=== PATIENT | male | born 1980 | race Caucasian/White ===

== ENCOUNTER 2019-12-02 20:33 | Emergency (ER) | payer MEDICAID, SELFPAY ==
--- NOTE | 2019-12-02 20:52 | PC.NURSE ---
EMS REPORT PATIENT RECENTLY DISCHARGED FROM [facility] DUE TO SPINAL INFECTION, WAS TREATED WITH IV ANTIBIOTICS, PATIENT C/O 9/10 BACK PAIN AND STATES HE IS UNABLE TO WALK, + CSM/PULSES TO LOWER EXTREMITIES, VITALS BY EMS BP 128/70, HR 100, 98% R/A, RR 20.
[2019-12-02 21:34] VITALS: BP 128/70; BP 97/63; PULSE 100; PULSE 103; RESP 20; TEMP 36.3; O2SAT 96; O2SAT 98; BMI 30.7
--- NOTE | 2019-12-02 21:49 | PC.NURSE ---
BP PATIENTS BP ON LT ARM WAS 97/63, BP ON RIGHT ARM WAS 89/72
--- NOTE | 2019-12-02 22:38 | ED_ITS ---
HPI - Back Pain/Injury General Chief Complaint: Back Pain/Injury Stated Complaint: BACK PAIN Time Seen by Provider: 12/02/19 22:38 Source: patient Mode of arrival: EMS History of Present Illness HPI Narrative: this is a 39-year-old male who is brought in by EMS after reporting inability to walk and significant numbness to bilateral lower extremities which is not new. This patient has been undergoing IV antibiotic therapy for bilateral psoas abscesses and signed out AMA this morning from [facility]. On review of records obtained, this is not the 1st time that patient has done this and he endorses that this is due to inadequate pain control. Otherwise, he denies any fevers, chills, shortness of breath, chest pain / palpitations. His primary concern is that he has bilateral lower extremity numbness and weakness to the point that he is unable to walk. Patient does endorse that he last used heroin this morning at approximately 11:00 a.m. and states that it was 1 bag. Related Data Allergies Allergy/AdvReac Type Severity Reaction Status Date / Time pregabalin [From Lyrica] Allergy Mild HIVES Unverified 11/13/19 17:40 NSAIDS (Non-Steroidal AdvReac Mild STOMACH Unverified 11/13/19 17:40 Anti-Inflamma UPSET [NSAIDS (NON-STEROIDAL ANTI-INFLAMMA] From TORADOL Allergy Unknown RASH Uncoded 11/13/19 17:40 Ketorolac Tromethamine Allergy Unknown hives Uncoded 05/12/11 00:00 Lyrica Allergy Unknown Uncoded 05/12/11 00:00 Tramadol HCl Allergy Unknown stomach Uncoded 05/12/11 00:00 upset Review of Systems Review of Systems: Pertinent positives and negatives as stated in the HPI. 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 hand Kidney stone Opiate abuse, continuous Stomach ulcer Surgical abdomen Surgical History H/O rotator cuff surgery History of back surgery Social History Social History Alcohol intake: never Smoking Status: Current every day smoker Smoked in Last 30 Days: Yes Use of substances other than those prescribed or required for medical reasons: Yes Substance Use Type: Heroin and IV Drugs Advance Directives: No Advance Directives Information Provided: No Physical Exam Vital Signs and I&O and Narrative: Vital Signs and I&O: Vital Signs Temp 97.3 F 12/02/19 21:34 Pulse 94 12/02/19 23:04 Resp 12 12/02/19 23:04 BP 95/66 12/02/19 23:04 Pulse Ox 99 12/02/19 23:04 Intake & Output 12/02/19 12/02/19 12/03/19 06:59 18:59 06:59 Weight 99.79 kg Body Mass Index 30.7 VITAL SIGNS: Reviewed. GENERAL: Well developed, well nourished, in no acute distress. HEAD: Normocephalic/atraumatic, Posterior oropharynx was without edema, erythema or exudate. EYES: PERRLA, Pupils <>, EOMI intact without pain, no nystagmus/pallor/icterus noted EARS: Ext canals without abnormality, TMs non-bulging and non-erythematous NOSE: Nares patent bilateral OROPHARYNX: no oral lesions noted, posterior pharynx clear and non-erythematous without noted tonsillar enlargement/erythema/exudates NECK: Supple, no adenopathy LUNGS: Normal breath sounds. No adventitious sounds or accessory muscle use. SpO2<> CARDIOVASCULAR: Regular rate and rhythm without noted murmurs, no JVD or lower extremity edema. ABDOMEN: Soft, non-tender, non-distended with bowel sounds. No rigidity. No guarding. No palpable masses or hernias noted MUSCULOSKELETAL: No tenderness, deformities, or effusions noted on gross inspection. EXTREMITIES: No cyanosis, clubbing or edema. SKIN: Inspection of the skin reveals no rashes, ulcerations, jaundice, pallor, or petechiae. NEUROLOGIC: Alert and oriented x 4. 3/5 decrease in strength with significantly abnormal dorsiflexion/plantar flexion, sensation is significantly decreased although inconsistent with dermatomal pattern. Course Course Course Narrative: This is a 39-year-old male who is well known to both [facility] and [facility] for attempts to treat this patient for epidural abscesses. [facility] was contacted and will accept the patient under the care Dr Clifford. Consult was placed with [facility] Inpatient Hospitalist: I spoke with RETAIL SHIFT MANAGER Kadi @ 0025 and she will be discussing with her attending regarding transfer. Discharge Plan Discharge Clinical Impression: Abscess Patient Disposition: [facility]
[2019-12-02 23:04] VITALS: BP 95/66; PULSE 94; RESP 12; O2SAT 99
--- NOTE | 2019-12-02 23:27 | PC.NURSE ---
[facility] PT TX LINE CALLED [phone] @ DR WELLS REQUEST @ THIS TIME MAJO ANSWERS TAKES PT INFO, CALL BACK NUMBER AND ASKS TO SPEAK WITH DR RUSSELL WELLS TAKES CALL SHORTLY AFTER
--- NOTE | 2019-12-03 00:23 | PC.NURSE ---
RETURN CALL FROM [facility] OF THE [facility] PT TX LINE @ THIS TIME ASKS TO SPEAK WITH DR RUSSELL WELLS TAKES OVER CALL RIGHT AWAY
--- NOTE | 2019-12-03 00:35 | PC.NURSE ---
RETURN CALL FROM [facility] OF THE [facility] PT TX LINE @ THIS TIME ASKS TO SPEAK WITH DR RUSSELL WELLS TAKES OVER CALL RIGHT AWAY PER DR ALVAREZ PT ACCEPTED BY DR PANG, EXPECT CALL BACK FROM [facility] WITH ROOM ASSIGNMENT WHEN AVAILABLE
--- NOTE | 2019-12-03 00:43 | PC.NURSE ---
RETURN CALL FROM [facility] PT TX LINE @ THIS TIME GIVES ROOM ASSIGNMENT OF: EATON [address] BED 31B RN TO RN SHOULD BE CALLED TO: [phone] REQUEST FOR FAX OF FACE SHEET TO: [phone]
[2019-12-03 01:21] VITALS: BP 107/66; PULSE 98; RESP 12; O2SAT 99
[2019-12-03] MEDS: oxyCODONE HCl Immed Release 5 MG TABLET 10 MG PO (02:26)
== END 2019-12-03 02:45 | disposition short-term general hospital (02) ==
PROVIDERS: Emergency Provider Student in an Organized Health Care Education/Training Program; PCP Nurse Practitioner Family
DX: L02.212 Cutaneous abscess of back [any part, except buttock and flank] (principal); M54.5 Low back pain; R20.0 Anesthesia of skin; R26.2 Difficulty in walking, not elsewhere classified; F17.200 Nicotine dependence, unspecified, uncomplicated; Z71.6 Tobacco abuse counseling; Z79.899 Other long term (current) drug therapy
CPT/HCPCS: 99284; 99285

== ENCOUNTER 2019-12-08 00:20 | Emergency (ER) | payer MEDICAID, SELFPAY ==
[2019-12-08 00:26] VITALS: BP 113/69; PULSE 90; RESP 16; TEMP 36.5; O2SAT 98
[2019-12-08 00:34] VITALS: BP 113/69; BP 132/92; PULSE 90; PULSE 98; RESP 16; TEMP 36.5; O2SAT 97; O2SAT 98; BMI 28.5
--- NOTE | 2019-12-08 00:45 | ED_ITS ---
HPI - Back Pain/Injury General Chief Complaint: Weakness Stated Complaint: BACK PAIN Time Seen by Provider: 12/08/19 00:35 History of Present Illness HPI Narrative: patient has a history of chronic back pain. History of multiple surgery in the past. History of heroin abuse. Patient's surgery was over 10 years ago patient has been having pain on and off since. Patient has an addiction to heroin. Claims he last use over 24 hours ago. Patient was at [facility] awaiting a rehab bed when he got annoyed. Decided to come to [facility] for further help. Patient denies any suicidal homicidal ideation. Patient wants additional pain medication for his back pain. No cough ing or congestion or upper respiratory symptoms that is new. Patient claims the pain is 10/10. patient denies any bowel urinary issue that is new. Patient denies any new focal weakness. No fever. No focal pain in the back. MD elicited complaint: back pain Onset (ago): year(s) Related Data Allergies Allergy/AdvReac Type Severity Reaction Status Date / Time pregabalin [From Lyrica] Allergy Mild HIVES Unverified 11/13/19 17:40 NSAIDS (Non-Steroidal AdvReac Mild STOMACH Unverified 11/13/19 17:40 Anti-Inflamma UPSET [NSAIDS (NON-STEROIDAL ANTI-INFLAMMA] From TORADOL Allergy Unknown RASH Uncoded 11/13/19 17:40 Ketorolac Tromethamine Allergy Unknown hives Uncoded 05/12/11 00:00 Lyrica Allergy Unknown Uncoded 05/12/11 00:00 Tramadol HCl Allergy Unknown stomach Uncoded 05/12/11 00:00 upset Review of Systems Review of Systems: Constitutional: No Weight loss, No Fever, No Chills, No Night Sweats, No Fatigue, No Malaise ENT/Mouth: No Hearing loss, No Ear Pain, No Nasal Congestion, No Sinus Pain, No Hoarseness, No sore throat, No Rhinorrhea, No Swallowing Difficulty Eyes: No Eye Pain, No Swelling, No Redness, No Foreign Body, No Discharge, No Vision Changes Cardiovascular: No Chest Pain, No SOB, No Dyspnea on Exertion, No Orthopnea, No Edema, No Palpitations Respiratory: No Cough, No Sputum, No Wheezing, No Smoke Exposure, No Dyspnea Gastrointestinal: No Nausea, No Vomiting, No Diarrhea, No Constipation, No abdominal Pain, No Hematochezia, No Melena Genitourinary: no irregular bleeding, No Dysuria, No Urinary Frequency, No Hematuria, No Urinary Incontinence, No Urgency, No Flank Pain, No Urinary Flow Changes, No Hesitancy Musculoskeletal: No joint pain, No Myalgias, No Joint Swelling Skin: No Skin Lesions, No rash Neuro: No Weakness, Positive chronic weakness of bilateral lower extremity positive history of back pain. 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 Appearance: Alert. Oriented X3. No acute distress. Eyes: Pupils equal, round and reactive to light. ENT: Pharynx normal. Neck: Normal inspection. Neck supple. No lymph nodes noted. No crepitus CVS: Normal heart rate and rhythm. Pulses normal. Normal S1 and S2 Respiratory: No respiratory distress. Breath sounds normal. No Wheezing. No rales Abdomen: Soft and nontender. No rigidity. No distention. good BS x4 Skin: Multiple track alves noted Extremities: No lower extremity edema. Neurovascular intact to all extremities. No Lacerations. No Rash Neuro: Oriented X 3. No motor deficit. No sensory deficit. Moving all extermities. No slurred speech MDM - Back Pain/Injury MDM Narrative Medical decision making narrative: patient offered detox. At this time has no fever no chills. Given patient's long history of heroin abuse. Patient told that we cannot offer him any additional narcotics. Patient states understanding that somewhat annoyed wants to leave against medical advice. Patient understood the risk of leaving including continue pain. Continue addiction. Potential from addition. Patient left against medical advice Differential Diagnosis Differential diagnosis: Likely lumbar radiculopathy, sciatica and strain of lumbar region Discharge Plan Discharge Clinical Impression: Back pain Patient Disposition: Left Against Medical Advice Additional Instructions: Thank you for visiting the emergency department today. If your symptoms worsen or do not resolve completely please return to the emergency department immediately or call 911. if he have any questions please call your primary care physician Referrals: Physician,Unknown [Primary Care Provider] - 1 day Stand Alone Forms: Against Medical Advice
--- NOTE | 2019-12-08 01:04 | PC.NURSE ---
PT STATES HE IS GOING TO LEAVE AMA, WHEN RN & MD ATTEMPTED TO REDIRECT AND ASK PT WHAT PLAN WAS HE STATED YOU PEOPLE DONT GIVE A SHIT ANYWAY, ITS NOT YOUR PROBLEM
== END 2019-12-08 01:00 | disposition left against medical advice (07) ==
PROVIDERS: Emergency Provider Emergency Medicine Emergency Medical Services; PCP Nurse Practitioner Family
DX: M54.5 Low back pain (principal); F11.10 Opioid abuse, uncomplicated; F17.200 Nicotine dependence, unspecified, uncomplicated
CPT/HCPCS: 99283

== ENCOUNTER 2019-12-11 22:26 | Emergency (ER) | payer MEDICAID, SELFPAY ==
[2019-12-11 22:33] VITALS: BP 112/64; PULSE 94; RESP 16; TEMP 36.6; O2SAT 100; BMI 28.1
[2019-12-11 22:45] VITALS: BP 116/74; PULSE 88; RESP 16; O2SAT 100
--- NOTE | 2019-12-11 22:57 | ED_ITS ---
HPI - Back Pain/Injury General Chief Complaint: Back Pain/Injury Stated Complaint: BACK PAIN Time Seen by Provider: 12/11/19 22:57 Source: patient Mode of arrival: ambulatory Limitations: no limitations History of Present Illness HPI Narrative: Patient states that he was at [facility] for spinal infection but it sounds like he signed out AMA. Patient is an active IVDA MD elicited complaint: back pain Pertinent past history: prior back pain Onset (ago): week(s) Timing: constant Severity: mild Location: lumbar spine Associated symptoms: denies other symptoms Related Data Previous Rx's Medication Instructions Recorded sulfamethoxazole-trimethoprim 1 tab PO BID #60 tab 12/12/19 [Bactrim DS] Allergies Allergy/AdvReac Type Severity Reaction Status Date / Time pregabalin [From Lyrica] Allergy Mild HIVES Verified 12/11/19 23:25 NSAIDS (Non-Steroidal AdvReac Mild STOMACH Verified 12/11/19 23:25 Anti-Inflamma UPSET [NSAIDS (NON-STEROIDAL ANTI-INFLAMMA] From TORADOL Allergy Unknown RASH Uncoded 11/13/19 17:40 Ketorolac Tromethamine Allergy Unknown hives Uncoded 05/12/11 00:00 Lyrica Allergy Unknown Unknown Uncoded 12/11/19 23:25 Tramadol HCl Allergy Unknown stomach Uncoded 05/12/11 00:00 upset Review of Systems Constitutional: Constitutional: Reports no additional constitutional complaints Eyes: Eyes: Reports no additional eye complaints ENT: Denies dizziness Cardiovascular: Cardiovascular: Reports no additional cardiovascular complaints Respiratory: Respiratory: Reports as per HPI Gastrointestinal: Gastrointestinal: Reports no additional gastrointestinal complaints Musculoskeletal: Musculoskeletal: Reports no additional musculoskeletal complaints Integumentary/Breasts: Skin/Breast: Denies rash Neurologic: Reports system reviewed and no additional complaints, except as documented, Denies dizziness and Denies Sensory deficit (Neuro) Psychiatric: Psychiatric: Denies anxiety PMFSH Past Medical History Medical History Goldsmith's palsy Chronic back pain GERD (gastroesophageal reflux disease) 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 hand Kidney stone Opiate abuse, continuous Stomach ulcer Surgical abdomen Surgical History H/O rotator cuff surgery History of back surgery Social History Social History Alcohol intake: never Smoking Status: Current some day smoker Smoked in Last 30 Days: Yes Use of substances other than those prescribed or required for medical reasons: No Substance Use Type: Heroin and IV Drugs Advance Directives: No Advance Directives Information Provided: No Physical Exam Vital Signs: Vital Signs: Vital Signs Temp Pulse Resp BP Pulse Ox 12/11/19 22:45 88 16 116/74 100 12/11/19 22:33 97.8 F 94 16 112/64 100 Body Mass Index 28.1 Const: Other: Patinet looking older than stated age Nutritional Appearance: average body habitus Orientation/consciousness: oriented to person and patient oriented x3 Limitations: no limitations HENMT: Head: Yes normal to inspection Ears: external ears normal General nose exam: Normal external nose present Mouth: Normal oral and palatal mucosa present and oropharynx normal Throat: Yes posterior oropharynx normal Eyes: General: appearance normal, both eyes and all related structures Neck: Other: supple Neck: Yes normal visual inspection Chest: Chest palpation & inspection: normal inspection of the chest Resp: Auscultation: clear to auscultation bilaterally Cardio: Jugular venous distension: no JVD Rate: regular rate Rhythm: regular rhythm Heart sounds: S1 normal heart sound present and S2 normal heart sound present GI: Inspection: Yes normal to inspection Palpation (GI): Soft to palpation, nontender and No hepatosplenomegaly present Auscultation: normal bowel sounds Back/Spine/Pelvis: Other: lumbar tendernesss Skin: Other: diffuse ulcerations consistent with staph infections Neuro: General: oriented to person and patient oriented x3 Cranial nerves: Yes CN's II-XII intact bilaterally Motor exam (neuro): 5/5 motor strength present throughout Sensory Exam: No Sensory deficit (Neuro) Extrem: General: Yes normal to inspection Psych: Appearance: grossly normal Course Course Course Narrative: patient left [facility] today signing out AMA. He had been diagnosed with epidural abscess, discitis, and osteomyelitis. patient was treated with IV Cefazolin. Will offer patient po bactrim to cover MRSA but if he feels that he needs to be admitted he will have to contact neurosurgery of [facility] MDM - Back Pain/Injury MDM Narrative Medical decision making narrative: patient to be treated with bactrim to cover MRSA. If he feels he needs admission he will have to contact [facility] neurosurgery where he just signed out AMA Differential Diagnosis Differential diagnosis: Likely discitis (osteomyelitis, epidural abscess) Discharge Plan Discharge Clinical Impression: Abscess in epidural space of L2-L5 lumbar spine Osteomyelitis Qualifiers: Osteomyelitis type: acute hematogenous Osteomyelitis location: other site Qualified Code(s): M86.08 - Acute hematogenous osteomyelitis, other sites Discitis Qualifiers: Spinal region: lumbosacral Qualified Code(s): M46.47 - Discitis, unspecified, lumbosacral region Patient Disposition: Home, Self-Care Additional Instructions: you have a serious spinal infection. you must follow up with neurosurgery from [facility] Prescriptions: New sulfamethoxazole-trimethoprim [Bactrim DS] 800-160 mg tablet 1 tab PO BID Qty: 60 RF: 0
[2019-12-11] MEDS: Acetaminophen 325 MG TABLET 650 MG PO (23:28)
== END 2019-12-12 01:06 | disposition home or self-care (01) ==
PROVIDERS: Emergency Provider Emergency Medicine; PCP Nurse Practitioner Family
DX: G06.1 Intraspinal abscess and granuloma (principal); M86.08 Acute hematogenous osteomyelitis, other sites; M46.47 Discitis, unspecified, lumbosacral region; F11.10 Opioid abuse, uncomplicated; F17.200 Nicotine dependence, unspecified, uncomplicated
CPT/HCPCS: 96372; 99284; J1885